=== PATIENT | male | born 1965 | race Caucasian/White ===

== ENCOUNTER → 2018-11-12 | Outpatient (CLI) | payer OTHER ==
--- NOTE | 2018-11-13 09:59 | REP ---
HISTORY: Pain and decreased range of motion, status post trauma two weeks ago. COMPARISON MRI: None. Mild hypertrophic degenerative changes seen involving the acromioclavicular joint. The acromion process is type 1. There is patchy T2 hypersignal seen throughout the supraspinatus tendon, the subbursal surface of which is irregular. Some of the T2 hypersignal is full thickness with evidence of retraction of the supraspinatus tendon to the level of the acromioclavicular joint. Normal appearing low signal is seen throughout the teres minor tendon, however, patchy T2 hypersignal is seen in the teres minor muscle belly. There is significant T2 hypersignal seen in the infraspinatus muscle and particularly musculotendinous junction. Mild patchy T2 hypersignal is seen throughout the subscapularis tendon. The biceps tendon resides within the bicipital groove. There is some linear hypersignal in the anterior labrum. There is no glenohumeral joint effusion. IMPRESSION: 1. The supraspinatus tendon is torn. 2. The infraspinatus tendon is torn particularly at the musculotendinous junction with some tendinous retraction. 3. There is edema in the teres minor muscle, the tendon of which is intact. 4. There is mild subscapularis tendinitis/tendinopathy. 5. There is an anterior labral tear which would be better evaluated with shoulder MR arthrography. 6. Other findings as described above. Electronically Signed by Declan Hair DO 11/13/2018 09:09 A
== END ==
LOC: M RAD 17:39
PROVIDERS: ATTEND Family Medicine
DX: M25.511 Pain in right shoulder (principal)

== ENCOUNTER → 2022-02-14 | Outpatient (CLI) | payer OTHER ==
[~2022-02-14] MED LIST: FURO40TA2 PO; LACT20EL PO; LIDOCAINE 1% MDV 20ML VIAL As Ordered ONE; MELA5CAP2 PO; SPIR100T3 PO
[2022-02-14 13:09] VITALS: BP 95/61
[2022-02-14 13:20] VITALS: BP 98/61
[2022-02-14 14:00] VITALS: BP 100/65
== END ==
LOC: M IRPRO 11:44
PROVIDERS: ATTEND Internal Medicine Gastroenterology
DX: K74.60 Unspecified cirrhosis of liver (principal); R18.8 Other ascites
CPT/HCPCS: 49083; 96365; P9047

== ENCOUNTER → 2022-03-03 | Outpatient (CLI) | payer OTHER ==
[~2022-03-03] MED LIST changes: -LIDOCAINE 1% MDV 20ML VIAL As Ordered ONE
[2022-03-03 12:46] VITALS: BP 91/61
[2022-03-03 13:00] VITALS: BP 93/60
== END ==
LOC: M IRPRO 11:06
PROVIDERS: ATTEND Internal Medicine Gastroenterology
DX: R18.8 Other ascites (principal); K74.60 Unspecified cirrhosis of liver
CPT/HCPCS: 49083; 96365; P9047

== ENCOUNTER → 2022-03-14 | Outpatient (CLI) | payer OTHER ==
[2022-03-14 14:00] VITALS: BP 98/64
== END ==
LOC: M IRPRO 11:22
PROVIDERS: ATTEND Internal Medicine Gastroenterology
DX: K74.60 Unspecified cirrhosis of liver (principal); R18.8 Other ascites
CPT/HCPCS: 49083; 96374; P9047

== ENCOUNTER 2022-04-04 14:19 | Emergency (ER) | payer OTHER ==
[~2022-04-04 14:19] MED LIST changes: -BENZ0.5T23 PO; -THIA100TA PO
[2022-04-04 15:37] LABS: BASO % 0.4 % (0.0-1.0); EOS % 0.1 % (0.0-3.0); HEMOGLOBIN 13.1 g/dl (13.5-17.5); LYMPH # 1.8 10^3/uL (1.5-5.0); LYMPH % 19.4 % (24.0-44.0); MEAN CORPUSCULAR HEMOGLOBIN 33.9 pg (27.0-33.0); MEAN CORPUSCULAR HGB CONC 34.5 g/dl (32.0-36.5); MEAN CORPUSCULAR VOLUME 98.2 fl (80.0-96.0); MONO # 1.2 10^3/uL (0.0-0.8); MONO % 13.7 % (2.0-8.0); NEUTROPHILS # 5.9 10^3/uL (1.5-8.5); PLATELET COUNT, AUTOMATED 211 10^3/uL (150-450); RED BLOOD COUNT 3.87 10^6/uL (4.30-6.10)
[2022-04-04 15:38] LABS: VENOUS BASE EXCESS -0.9 (-2.0-2.0); VENOUS HCO3 23.6 MEQ/L (23.0-27.0); VENOUS O2 SATURATION 68.8 % (60.0-80.0); VENOUS PARTIAL PRESSURE CO2 38.6 mmHg (38.0-50.0); VENOUS PARTIAL PRESSURE O2 37.4 mmHg (30.0-50.0); VENOUS PH 7.404 UNITS (7.330-7.430); VENOUS STANDARD HCO3 23.1 MEQ/L; VENOUS TOTAL CO2 24.8 MEQ/L (24.0-28.0)
[2022-04-04 16:03] LABS: ETHYL ALCOHOL (ETHANOL) 0.003 % (0.000-0.010)
[2022-04-04 16:05] LABS: ALBUMIN 2.1 G/DL (3.2-5.2); ALKALINE PHOSPHATASE 84 U/L (46-116); ALT/SGPT 23 U/L (7.0-40); AST/SGOT 54 U/L (<34); BILIRUBIN,DIRECT 1.3 MG/DL (<0.4); BILIRUBIN,TOTAL 2.6 MG/DL (0.3-1.2); BLOOD UREA NITROGEN 18 MG/DL (9-23); CALCIUM LEVEL 8.4 MG/DL (8.5-10.1); CARBON DIOXIDE LEVEL 24 MMOL/L (20-31); CHLORIDE LEVEL 99 MMOL/L (98-107); CREATININE FOR GFR 0.71 MG/DL (0.70-1.30); GLOMERULAR FILTRATION RATE > 60.0 (>56); GLUCOSE, FASTING 78 MG/DL (60-100); POTASSIUM SERUM 4.4 MMOL/L (3.5-5.1); SODIUM LEVEL 131 MMOL/L (136-145); TOTAL PROTEIN 6.5 G/DL (5.7-8.2)
[2022-04-04 16:07] LABS: THYROID STIMULATING HORMONE 1.556 uIU/ML (0.55-4.78)
[2022-04-04 16:09] LABS: RSV AMPLIFICATION NEGATIVE (NEGATIVE)
[2022-04-04 16:20] LABS: OSMOLALITY SERUM 275 MOSM/KG (275-295)
[2022-04-04 17:12] LABS: SOURCE, BODY FLUID ALBUMIN PERITONEAL
[2022-04-04 17:17] LABS: SOURCE, BODY FLUID GLUCOSE PERITONEAL
[2022-04-04 17:19] LABS: SOURCE, BODY FLUID TOT PROTEIN PERITONEAL; TOTAL PROTEIN, BODY FLUID < 2.0 G/DL (NOT ESTABLISHED)
[2022-04-04 17:26] LABS: APPEARANCE, BODY FLUID CLEAR (CLEAR); PERITONEAL FL COLOR YELLOW (COLORLESS); SOURCE, BODY FLUID PERITONEAL
[2022-04-04] MEDS ORDERED: BENZTROPINE 0.5 MG TAB PO ONE (17:40)
[2022-04-04 17:56] LABS: AMPHETAMINES LEVEL URINE NEGATIVE (NEGATIVE); BARBITURATES URINE NEGATIVE (NEGATIVE); BENZODIAZEPINES URINE NEGATIVE (NEGATIVE); CANNABINOIDS URINE NEGATIVE (NEGATIVE); COCAINE METABOLITE URINE NEGATIVE (NEGATIVE); METHADONE URINE NEGATIVE (NEGATIVE); OPIATES URINE NEGATIVE (NEGATIVE); PHENCYCLIDINE URINE NEGATIVE (NEGATIVE)
[2022-04-04] MEDS ORDERED: BENZ0.5T23 PO (18:24)
[2022-04-04] MEDS ORDERED: THIA100TA PO (18:25)
[2022-04-04 18:55] VITALS: BP 12/65
== END 2022-04-04 18:58 | disposition home or self-care (01) ==
LOC: M ED 14:45
DX: G24.9 Dystonia, unspecified (principal); K74.60 Unspecified cirrhosis of liver; R94.31 Abnormal electrocardiogram [ECG] [EKG]; Z79.811 Long term (current) use of aromatase inhibitors; Z79.899 Other long term (current) drug therapy; Z87.891 Personal history of nicotine dependence

== ENCOUNTER → 2022-04-04 | Outpatient (CLI) | payer OTHER ==
[~2022-04-04] MED LIST changes: +BENZ0.5T23 PO; +THIA100TA PO
[2022-04-04 14:02] VITALS: BP 103/69
== END ==
LOC: M IRPRO 13:01
PROVIDERS: ATTEND Internal Medicine Gastroenterology
DX: R18.8 Other ascites (principal); K74.60 Unspecified cirrhosis of liver

== ENCOUNTER → 2022-04-11 | Outpatient (CLI) | payer OTHER ==
[~2022-04-11] MED LIST changes: +BENZ0.5T23 PO; +LIDOCAINE 1% MDV 20ML VIAL As Ordered ONE; +THIA100TA PO
[2022-04-11 12:13] VITALS: BP 92/55
[2022-04-11 12:19] VITALS: BP 84/50
[2022-04-11 12:23] VITALS: BP 81/54
[2022-04-11 12:55] VITALS: BP 88/55
== END ==
LOC: M IRPRO 11:12
PROVIDERS: ATTEND Internal Medicine Gastroenterology
DX: R18.8 Other ascites (principal); K74.60 Unspecified cirrhosis of liver
CPT/HCPCS: 49083; 96365; P9047